=== PATIENT | male | born 1990 ===

== ENCOUNTER 2018-01-30 10:04 | Emergency (ER) | payer SELFPAY ==
[2018-01-30 10:47] VITALS: BP 119/61
--- NOTE | 2018-01-30 11:30 | UC ---
Nausea/Vomiting/Diarrhea HPI - HPI Summary HPI Summary: Vomiting and diarrhea the last two days or so. He has had two vomiting episodes and 4 episodes of diarrhea over the last 24 hours . No fever, pain, or blood in stool or vomitus. He is generally healthy. - History of Current Complaint Chief Complaint: UCGeneralIllness Stated Complaint: DIZZY, WEAK Time Seen by Provider: 01/30/18 10:50 Hx Obtained From: Patient Onset/Duration: Gradual Onset, Lasting Days Timing: Constant Severity Initially: Moderate Severity Currently: Moderate Pain Intensity: 7 - currently denies pain. Aggravating Factor(s): Food Alleviating Factor(s): Nothing Nausea/Vomiting Presence: None Vomiting Characteristics: Nonbilious Diarrhea Frequency: Every 3-4 hours Diarrhea Characteristics: Watery - Allergies/Home Medications Allergies/Adverse Reactions: Allergies Allergy/AdvReac Type Severity Reaction Status Date / Time No Known Allergies Allergy Verified 01/30/18 10:44 Home Medications: Home Medications D-Methorphan/PE/Acetaminophen [Daytime Cold-Flu Relief Sftgl] 1 each PO BID [History Confirmed 01/30/18] PMH/Surg Hx/FS Hx/Imm Hx Previously Healthy: No - smoker and marijuanna use. - Surgical History Surgical History: None - Family History Known Family History: Positive: Unknown, Cardiac Disease, Hypertension, Diabetes - Social History Occupation: Employed Full-time Alcohol Use: Occasionally Substance Use Type: None Smoking Status (MU): Heavy Every Day Tobacco Smoker Type: Cigarettes Amount Used/How Often: 1/2 pack daily Review of Systems Gastrointestinal: Vomiting, Diarrhea All Other Systems Reviewed And Are Negative: Yes Physical Exam Triage Information Reviewed: Yes Appearance: Well-Appearing, No Pain Distress, Well-Nourished Vital Signs: Initial Vital Signs Temp 99.2 F 01/30/18 10:39 Pulse 74 01/30/18 10:39 Resp 19 01/30/18 10:39 BP 119/61 01/30/18 10:39 Pulse Ox 100 01/30/18 10:39 Vital Signs Reviewed: Yes Eyes: Positive: Conjunctiva Clear ENT: Positive: Pharynx normal. Negative: Pharyngeal erythema Neck: Positive: Supple, Nontender, No Lymphadenopathy. Negative: Nuchal Rigidity Respiratory: Positive: Lungs clear, Normal breath sounds, No respiratory distress, No accessory muscle use. Negative: Respiratory distress, Decreased breath sounds, Accessory muscle use, Crackles, Rhonchi, Stridor Cardiovascular: Positive: No Murmur, Pulses Normal, Brisk Capillary Refill Abdomen Description: Positive: Nontender, No Organomegaly, Soft. Negative: CVA Tenderness (R), CVA Tenderness (L), Distended, Guarding Musculoskeletal: Positive: Strength Intact, ROM Intact, No Edema Neurological: Positive: Alert, Muscle Tone Normal. Negative: Fatigued Psychological: Positive: Age Appropriate Behavior Skin: Negative: rashes Naus/Vom/Diarrhea Course/Dx - Course Course Of Treatment: dizziness is further clarified as lightheadedness not palpitations or vertigo. - Differential Dx/Diagnosis Provider Diagnoses: vomiting and diarrhea. Condition At Discharge: Good Discharge - Sign-Out/Discharge Documenting (check all that apply): Discharge/Admit/Transfer - Discharge Plan Condition: Good Disposition: HOME Prescriptions: Loperamide HCl [Imodium A-D] 2 mg PO TID PRN #12 capsule PRN Reason: Diarrhea Ondansetron TAB* [Zofran 4 MG Tab*] 4 mg PO Q6H PRN #12 tab PRN Reason: Vomiting Patient Education Materials: Gastroenteritis (ED) Forms: *Work Release Referrals: Non Staff,Doctor [Primary Care Provider] - - Billing Disposition and Condition Condition: GOOD Disposition: Home
== END 2018-01-30 11:32 | disposition home or self-care (01) ==
LOC: UCCORT 10:04
DX: R11.10 Vomiting, unspecified (principal); R19.7 Diarrhea, unspecified
CPT/HCPCS: 93005; 99212; G0463